=== PATIENT | male | born 1960 | race Caucasian/White ===

== ENCOUNTER 2018-11-27 00:42 | Emergency (ER) | payer BC ==
[~2018-11-27] VITALS: Ht 167.6 cm; Wt 63.6 kg
[2018-11-27 00:48] VITALS: Ht 167.6 cm; Wt 63.6 kg
--- NOTE | 2018-11-27 01:06 | ERD ---
ER Documentation Chief Complaint Chief Complaint bib self, cc: right eye pain s/p scratch ROS All systems reviewed and are negative except as per history of present illness. Allergies Allergies: Coded Allergies: No Known Allergy (Unverified , 11/27/18) PMhx/Soc Medical and Surgical Hx: pt denies Medical Hx, pt denies Surgical Hx Hx Alcohol Use: No Hx Substance Use: No Hx Tobacco Use: Yes Smoking Status: Current every day smoker Physical Exam Vitals Vital Signs Date Temp Pulse Resp B/P (MAP) Pulse Ox O2 O2 Flow FiO2 Time Delivery Rate 11/27/18 98.6 90 19 117/63 100 00:48 (81) Physical Exam Const: No acute distress Head: Atraumatic Eyes: Normal Conjunctiva ENT: Normal External Ears, Nose and Mouth. Neck: Full range of motion. No meningismus. Resp: Clear to auscultation bilaterally Cardio: Regular rate and rhythm, no murmurs Abd: Soft, non tender, non distended. Normal bowel sounds Skin: No petechiae or rashes Back: No midline or flank tenderness Ext: No cyanosis, or edema Neur: Awake and alert Psych: Normal Mood and Affect JOSELINE PARDO DO Nov 27, 2018 01:06
[2018-11-27] MEDS ORDERED: POLY10DR19 RIGHT EYE (01:58)
[2018-11-27] MEDS ORDERED: TETRACAINE 0.5% 4 ML OPH LEFT EYE SCH (02:00)
[2018-11-27] MEDS ORDERED: FLUORESCEIN STRIP LEFT EYE ONE (02:00)
[2018-11-27 02:19] VITALS: BP 109/65; PULSE 76; RESP 18
== END 2018-11-27 02:20 | disposition home or self-care (01) ==
LOC: FTE 00:42
DX: H57.11 Ocular pain, right eye (principal); F17.210 Nicotine dependence, cigarettes, uncomplicated
CPT/HCPCS: Z7502; Z7610; 99283